=== PATIENT | female | born 1980 | race Caucasian/White ===

== ENCOUNTER 2018-12-25 23:28 | Emergency (ER) | payer BC, OTHER ==
--- NOTE | 2018-12-26 00:08 | EDM.PDOC ---
ED HPI GENERAL MEDICAL PROBLEM - General Chief Complaint: Syncope Stated Complaint: HEAD INJURY Time Seen by Provider: 12/25/18 23:38 Source of Information: Reports: Patient, Family (Son, daughter) History Limitations: Reports: No Limitations - History of Present Illness INITIAL COMMENTS - FREE TEXT/NARRATIVE: Mrs. Dillon is a pleasant 38-year-old woman who states that she was sitting in recliner, got up and went to the restroom, felt nauseated and developed leg cramps, then woke up on the bathroom floor with pain to the back left of her head, around 23:00 tonight. Her kids heard her fall, and by the time they got to the bathroom, she was already awake. She denies feeling chest pain, palpitations, or lightheadedness prior to passing out although she states that she has been feeling tired recently. No prior similar symptoms. 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 She underwent a craniotomy with incomplete excision of the meningioma, followed by cranioplasty , in the summer of 2017. She states that an MRI of her head in October of this year found that the remaining meningioma is growing, and she will require repeat surgery at some point in the future. The patient states that she has not been ill recently, such as recent fever or chills, cough, dyspnea, nausea, vomiting, constipation, diarrhea, abdominal pain , recent weight gain or weight loss, recent bloody bowel movements or black bowel movements, recent joint aches, rashes, or urinary symptoms. Here in the ED, the patient is complaining of a headache. She states that she gets headaches on occasion, for which she takes Advil. The patient's PCP is RODRIGUEZ Joshi. Her Neurosurgeon in [place] is Dr. Miguel Adhikari. Her Neurosurgeon at the [facility] is Dr. Lawrence Peterson. Posterior Headache Pain Score (Numeric/FACES): 6 - Related Data Allergies Allergy/AdvReac Type Severity Reaction Status Date / Time No Known Allergies Allergy Verified 12/25/18 23:38 Home Meds: Home Meds . [No Known Home Meds] 12/25/18 [History] Past Medical History Neurological History: Reports: Other (See Below) (Meningioma by brainstem) - Past Surgical History Head Surgeries/Procedures: Reports: Craniotomy (for incomplete excision meningioma Oct 2018) HEENT Surgical History: Reports: Oral Surgery (wisdom teeth extraction) Musculoskeletal Surgical History: Reports: ORIF (Right wrist. Left shoulder. Left knee. Right ankle.) Social & Family History - Family History Family Medical History: Noncontributory - Tobacco Use Smoking Status *Q: Never Smoker - Caffeine Use Caffeine Use: Reports: None - Alcohol Use Alcohol Use History: Yes Alcohol Use Frequency: Socially (occasionally to excess) - Recreational Drug Use Recreational Drug Use: No - Living Situation & Occupation Living situation: Reports: , with Spouse, with Family (5 kids) Occupation: Employed ([employer]) ED ROS GENERAL - Review of Systems Review Of Systems: ROS reveals no pertinent complaints other than HPI. - Physical Exam Exam: See Below Exam Limited By: No Limitations General Appearance: Alert, WD/WN, No Apparent Distress Eye Exam: Bilateral Eye: EOMI, Normal Inspection, PERRL Ears: Normal External Exam, Normal Canal, Hearing Grossly Normal, Normal TMs Nose: Normal Inspection, Normal Mucosa, No Blood Throat/Mouth: Normal Inspection, Normal Lips, Normal Teeth, Normal Gums, Normal Oropharynx, Normal Voice, No Airway Compromise Head Exam: Atraumatic, Normocephalic, Other (Mild tenderness over the left asterion, but no visible or palpable swelling, erythema, ecchymosis, or abrasion ) Neck: Normal Inspection, Supple, Non-Tender, Full Range of Motion Respiratory/Chest: No Respiratory Distress, Lungs Clear, Normal Breath Sounds, No Accessory Muscle Use Cardiovascular: Normal Peripheral Pulses, Regular Rate, Rhythm, No Edema, No Gallop, No JVD, No Murmur, No Rub GI/Abdominal: Normal Bowel Sounds, Soft, Non-Tender, No Organomegaly, No Distention, No Abnormal Bruit, No Mass (Female) Exam: Deferred Rectal (Female) Exam: Deferred Neuro Exam (Abbreviated): Alert, Oriented, CN II-XII Intact, Normal Cognition, No Motor/Sensory Deficits Back Exam: Normal Inspection, Full Range of Motion, NT Extremities: Normal Inspection, Normal Range of Motion, No Pedal Edema, Normal Capillary Refill Psychiatric: Normal Affect Skin Exam: Warm, Dry, Intact, Normal Color, No Rash EKG INTERPRETATION EKG Date: 12/26/18 Time: 00:06 Rhythm: NSR Rate (Beats/Min): 73 [place]: Normal (Borderline LAD) P-Wave: Enlarged (LAE, 1 AVB) QRS: Normal (Late transition, LVH) ST-T: Normal QT: Normal Comparison: NA - No Prior EKG Course - Vital Signs Last Recorded V/S: Last Vital Signs Temp 36.1 C 12/25/18 23:34 Pulse 80 12/25/18 23:34 Resp 16 12/25/18 23:34 BP 156/107 H 12/25/18 23:34 Pulse Ox 99 12/25/18 23:34 Orthostatic Blood Pressure [ 139/97 Standing] Orthostatic Blood Pressure [ 140/96 Supine] - Orders/Labs/Meds Orders: Active Orders 24 hr Category Date Time Status EKG Documentation Completion [RC] STAT Care 12/25/18 23:58 Active Orthostatic Vital Signs [RC] STAT Care 12/25/18 23:42 Active Labs: Laboratory Tests 12/26/18 12/26/18 12/26/18 Range/Units 00:12 00:12 00:12 WBC 8.69 (3.98-10.04) K/mm3 RBC 3.94 L (3.98-5.22) M/mm3 Hgb 11.8 (11.2-15.7) gm/dl Hct 34.3 (34.1-44.9) % MCV 87.1 (79.4-94.8) fl MCH 29.9 (25.6-32.2) pg MCHC 34.4 (32.2-35.5) g/dl RDW Std Deviation 38.8 (36.4-46.3) fL Plt Count 305 D (182-369) K/mm3 MPV 9.2 L (9.4-12.3) fl Neut % (Auto) 63.1 (34.0-71.1) % Lymph % (Auto) 21.7 (19.3-51.7) % [place] % (Auto) 10.1 (4.7-12.5) % Eos % (Auto) 4.6 (0.7-5.8) Baso % (Auto) 0.3 (0.1-1.2) % Neut # (Auto) 5.47 (1.56-6.13) K/mm3 Lymph # (Auto) 1.89 (1.18-3.74) K/mm3 [place] # (Auto) 0.88 H (0.24-0.36) K/mm3 Eos # (Auto) 0.40 H (0.04-0.36) K/mm3 Baso # (Auto) 0.03 (0.01-0.08) K/mm3 Sodium 141 (136-145) mEq/L Potassium 3.5 (3.5-5.1) mEq/L Chloride 105 (98-107) mEq/L Carbon Dioxide 27 (21-32) mEq/L Anion Gap 12.5 (5-15) BUN 13 (7-18) mg/dL Creatinine 0.7 (0.55-1.02) mg/dL Est Cr Clr Drug Dosing 107.77 mL/min Estimated GFR (MDRD) > 60 (>60) mL/min BUN/Creatinine Ratio 18.6 H (14-18) Glucose 122 H (74-106) mg/dL Calcium 8.5 (8.5-10.1) mg/dL Magnesium 1.7 L (1.8-2.4) mg/dl Total Bilirubin 0.3 (0.2-1.0) mg/dL AST 23 (15-37) U/L ALT 24 (14-59) U/L Alkaline Phosphatase 45 L (46-116) U/L Total Protein 7.2 (6.4-8.2) g/dl Albumin 3.8 (3.4-5.0) g/dl Globulin 3.4 gm/dL Albumin/Globulin Ratio 1.1 (1-2) TSH 3rd Generation 4.930 H (0.358-3.74) uIU/mL HCG, Quant < 1.0 mIU/mL - Re-Assessments/Exams Free Text/Narrative Re-Assessment/Exam: 12/26/18 00:02 The cause of the patient's syncope is not immediately clear. The patient suspects that she is just tired. I am concerned about her history of a meningioma pressing on her brainstem. The patient tells me that prior to surgery , the meningioma caused her to have headaches and auditory problems, not syncope issues, therefore the likelihood that the meningioma is the cause of her current syncope is low, however, I ordered a CT of the head without contrast , not so much to look at the meningioma itself, but to look for evidence of increased intracranial pressure. In addition, I ordered orthostatics, blood work , a urinalysis, a urine drug screen, and an ECG. 12/26/18 00:03 The patient's orthostatics are negative. 12/26/18 01:55 CT of the head without contrast is read by [facility] as: No acute findings. 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 Correlate with history. Possibly meningioma or even a [place] dome of the fifth cranial nerve. Certainly the patient must have comparisons which can be used to evaluate for interval changes. [sic] 12/26/18 02:27 The patient's CBC is unremarkable. Her CMP is remarkable for a blood glucose mildly elevated at 122, and is otherwise unremarkable. Her magnesium level is slightly depressed at 1.7. Her TSH level is elevated at 4.930. Her quantitative hCG is <1.0. The patient did not provide a urine sample for urinalysis or urine drug screen. Notified by Luz Maria WALL that the patient left AMA. Departure - Departure Time of Disposition: 02:30 Disposition: Against Medical Advice 07 Condition: Fair Clinical Impression: Syncope - Discharge Information *PRESCRIPTION DRUG MONITORING PROGRAM REVIEWED*: Not Applicable *COPY OF PRESCRIPTION DRUG MONITORING REPORT IN PATIENT [place]: Not Applicable Referrals: Dianelys Ross PA-C [Primary Care Provider] - Forms: ED Department Discharge - My Orders Last 24 Hours: My Active Orders 12/25/18 23:42 Orthostatic Vital Signs [RC] STAT 12/25/18 23:58 EKG Documentation Completion [RC] STAT - Assessment/Plan Last 24 Hours: My Active Orders 12/25/18 23:42 Orthostatic Vital Signs [RC] STAT 12/25/18 23:58 EKG Documentation Completion [RC] STAT
--- NOTE | 2018-12-26 06:54 | CT ---
Head CT Technique: Multiple axial sections through the brain were obtained. Intravenous contrast was not utilized. Comparison: Prior head CT exam of 06/21/11. Findings: Previous surgery is noted within the posterior left side of the occipital bone. Low density seen within the adjacent cerebellum and posterior temporal lobe compatible with encephalomalacia from prior surgery. Soft tissue density is noted best on the coronal images along the left side of the petrous bone and occipital bone. This measures about 2.7 cm in craniocaudal dimension and 1.5 cm in transverse dimension which is measured on the coronal images. AP dimension measures about 2.3 cm on the axial images. This is an extra-axial mass. No other abnormal parenchymal densities are seen. No evidence of intracranial hemorrhage. No midline shift or mass effect is seen. No acute calvarial abnormality is appreciated. Impression: 1. Previous left-sided surgery with craniotomy and areas of encephalomalacia as noted above. 2. Residual or recurrent mass is identified along the medial petrous bone and adjacent occipital bone. 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 3. No acute intracranial abnormality is otherwise seen. Diagnostic code #9 I agree with preliminary report from [facility], finalized on 12/26/18, 2:41 AM Central Time
== END 2018-12-26 02:23 | disposition left against medical advice (07) ==
LOC: JD.ED 23:28
DX: R55 Syncope and collapse (principal)
CPT/HCPCS: 36415; 70450; 70450-26; 80053; 83735; 84443; 84702; 85025; 93005; 99284-25